=== PATIENT | male | born 1965 | race Caucasian/White ===

== ENCOUNTER 2024-04-23 18:38 | Emergency (ER) | payer SELFPAY ==
[~2024-04-23] VITALS: Ht 165.1 cm; Wt 91.6 kg
[2024-04-23 18:42] VITALS: O2SAT 98
[2024-04-23] MEDS: ACETAMINOPHEN 325MG TABLET PO ONE (21:11)
[2024-04-23] MEDS: TETANUS, DIPHTHERIA, PERTUSSIS VAC/PF 0.5ML (>10YR OLD) IM ONE (21:20)
[2024-04-23 21:21] VITALS: BP 129/78; PULSE 80; RESP 17; TEMP 36.78072; O2SAT 98
== END 2024-04-23 21:29 | disposition home or self-care (01) ==
LOC: ER 18:38
DX: S80.812A Abrasion, left lower leg, initial encounter (principal); S80.811A Abrasion, right lower leg, initial encounter; W18.39XA Other fall on same level, initial encounter; Y93.89 Activity, other specified; Y92.89 Other specified places as the place of occurrence of the external cause; Y99.8 Other external cause status
CPT/HCPCS: 73560; 73590; 73600; 90471; 90715; 99284